=== PATIENT | female | born 1990 | race Caucasian/White ===

== ENCOUNTER 2017-09-04 19:29 | Observation (INO) ==
--- NOTE | 2017-09-04 19:40 | OB/GYN Progress Note ---
Date of Encounter: 09/04/17 Time of Encounter: 19:38 - Assessment and Plan (1) 35 weeks gestation of Current Visit: Yes Status: Acute (2) Decreased movement Current Visit: Yes Status: Acute We will perform NST. If within normal limits we will discharge the patient home with close follow-up with OB. Qualifiers: Fetus number: single or unspecified fetus Trimester: third trimester Qualified Code(s): O36.8130 - Decreased movements, third trimester, not applicable or unspecified Subjective - Subjective Interval history: 26-year-old female at 35 weeks 0 days presenting to labor and delivery with concern for decreased movement. Patient states she has had decreased movement for the past 2-4 weeks. She has spoken with her physician as an outpatient and was told that this was due to increased fetus size. Patient states she did kick counts E which were normal but has not felt baby move since 4 PM. Denies any fluid leakage, vaginal bleeding or contractions. Denies any other symptoms. Patient was seen in the emergency department yesterday and heart tones were 150. Antepartum ROS: no loss of fluid, no vaginal bleeding, no movement normal , no contractions Objective - Exam FHR: auscultation normal Abdomen: Present: normal appearance, soft, gravid Uterus: Present: normal, firm Comments: I examined this patient and my medical decision-making was reviewed with the Resident Physician. I agree with the documented findings, disposition and treatment plan as described except to the extent set forth below. [facility] [place]
[2017-09-04 19:55] LABS: Amphetamine Screen,Urine Negative ng/mL (Cutoff=1000); Barbiturate Screen,Urine Negative ng/mL (Cutoff=200); Benzodiazepines Screen,Urine Negative ng/mL (Cutoff=200); Cannabinoid Screen,Urine Negative ng/mL (Cutoff = 50); Cocaine Screen,Urine Negative ng/mL (Cutoff= 300); Opiate Screen,Urine Negative ng/mL (Cutoff=300); Phencyclidine Screen,Urine Negative ng/mL (Cutoff=25)
--- NOTE | 2017-09-04 21:13 | Discharge Summary ---
Date of Encounter: 09/04/17 Time of Encounter: 21:12 - Discharge Diagnosis (1) 35 weeks gestation of Priority: Primary Status: Acute Comments: admitted for observation (2) Decreased movement Priority: Secondary Status: Acute Comments: reactive nst patient reports +FM Qualifiers: Fetus number: single or unspecified fetus Trimester: third trimester Qualified Code(s): O36.8130 - Decreased movements, third trimester, not applicable or unspecified (3) NST (non-stress test) reactive on surveillance Priority: Secondary Status: Acute Comments: baseline 135 bpm moderate variability +15x15 accels no decels noted. Cat 1 tracing. - Discharge Medications Home Medications: Acetaminophen/Butalbital/Caffe [Fioricet] 1 each PO Q6HR PRN 09/03/17 [History] Lon907/FA/Omega3/Dha/Fish Oil [ Gummies] 1 each PO DAILY 09/03/17 [ History] Ranitidine HCl [Acid Ginner] 150 mg PO DAILY 09/03/17 [History] Allergies/Adverse Reactions: 3 Allergy/AdvReac Type Severity Reaction Status Date / Time No Known Allergies Allergy Verified 09/03/17 23:22 Data Procedures and tests throughout hospitalization: Laboratory Tests 09/04/17 19:35 Urine Opiates Screen Negative Ur Barbiturates Screen Negative Ur Phencyclidine Scrn Negative Ur Amphetamines Screen Negative U Benzodiazepines Scrn Negative Urine Cocaine Screen Negative U Marijuana (THC) Screen Negative Labs on day of discharge: Labs from last 24 hours 09/04/17 19:35 Urine Opiates Screen Negative Ur Barbiturates Screen Negative Ur Phencyclidine Scrn Negative Ur Amphetamines Screen Negative U Benzodiazepines Scrn Negative Urine Cocaine Screen Negative U Marijuana (THC) Screen Negative Date of admission: 09/04/17 19:29 Discharging clinician: Elvie Espinoza Anticipated date of discharge: 09/04/17 - Patient Status Disposition: Home, Self-Care Condition: Good - Discharge Instructions Follow Up With: Abdifatah Wood DO [Partnered Physician] - - Diet and Activity Activity: increase activity as tolerated Diet: regular diet Hospital Course [employer] Time Attestation: Total time spent providing and/or coordinating discharge services: Exam - Constitutional General appearance IM: A&O X 3, pleasant, answers questions appropriately - Other Additional findings: FHR 135 bpm moderate variability +15x15 accels no decels noted. Cat. 1 tracing. - VTE Reasons for not Prescribing Prophylaxis: Treatment not Indicated - Low risk for VTE
== END 2017-09-04 21:12 | disposition home or self-care (01) ==
LOC: 1NENULAB
PROVIDERS: ADMIT Obstetrics & Gynecology; ATTEND Obstetrics & Gynecology

== ENCOUNTER 2017-09-06 11:50 | Observation (INO) ==
[2017-09-06 13:08] LABS: Basophils % 0.2 %; Eosinophils % 0.3 %; Hematocrit 33.4 % (35.3-44.9); Hemoglobin 11.3 g/dL (11.5-15.4); Immature Granulocytes % 0.9 % (0-4); Lymphocytes # 2.7 K/mcL (0.6-4.6); Lymphocytes % 22.5 %; Mean Corpuscular HGB Conc 33.8 g/dL (31.6-35.5); Mean Corpuscular Hemoglobin 29.8 pg (28.0-33.3); Mean Corpuscular Volume 88.1 fL (83.0-100.0); Mean Platelet Volume 10.3 fL (9.4-12.4); Monocytes # 0.9 K/mcL (0.0-1.3); Monocytes % 7.7 %; Neutrophils # 8.3 K/mcL (1.6-8.9); Platelet Count 291 K/mcL (140-400); Red Blood Count 3.79 M/mcL (3.82-4.97); Red Cell Distribution Width 12.7 % (11.5-14.5); Segmented Neutrophils % 68.4 %
--- NOTE | 2017-09-06 14:10 | OB/GYN Progress Note ---
Date of Encounter: 09/06/17 Time of Encounter: 14:06 - Assessment and Plan (1) Fall from slipping on ice Current Visit: Yes Status: Acute Patient denies contractions, leaking fluid. A reactive fetus noted. tracing with baseline of 130s, accelerations noted. heart rate tracing difficult to trace at times due to arrhythmia. Labs within normal limits. Will discharge home with instructions of when to return to triage for evaluation. Discussed plan of care and arrhythmia with Dr. Ang Qualifiers: Encounter type: initial encounter Qualified Code(s): W00.9XXA - Unspecified fall due to ice and snow, initial encounter (2) 35 weeks gestation of Current Visit: No Status: Acute Subjective - Subjective Interval history: 35+5 weeks gestation presents to triage today following a fall on ice outside. Patient states she was walking outside and she slipped and fell on the ice hitting her bottom area patient states well was a hard during fall, she did not hit her abdomen and anyway. Reports good movement, denies contractions, vaginal bleeding or leaking of fluid Antepartum ROS: movement normal, no loss of fluid, no vaginal bleeding, no contractions Objective - Vital Signs Vital Signs: Intake and Output 09/05/17 09/06/17 09/06/17 23:59 07:59 15:59 Other: Weight 139 kg Patient Weight 09/06/17 23:59 Weight 139 kg - Exam FHR comments: arrhythmia noted during monitoring, making it difficult to trace fetus Auscultation: bilateral: normal Abdomen: Present: normal appearance, soft, gravid - Labs Labs: Abnormal lab results WBC 12.2 K/mcL (4.3-11.1) H 09/06/17 12:53 RBC 3.79 M/mcL (3.82-4.97) L 09/06/17 12:53 Hgb 11.3 g/dL (11.5-15.4) L 09/06/17 12:53 Hct 33.4 % (35.3-44.9) L 09/06/17 12:53
[2017-09-06 14:24] LABS: Activated Partial Thrombo Time 26.2 Seconds (26.0-36.0)
== END 2017-09-06 15:10 | disposition home or self-care (01) ==
LOC: 1NENULAB
PROVIDERS: ADMIT Obstetrics & Gynecology; ATTEND Obstetrics & Gynecology

== ENCOUNTER 2017-09-08 01:08 | Observation (INO) ==
[2017-09-08 01:41] LABS: Amphetamine Screen,Urine Negative ng/mL (Cutoff=1000); Barbiturate Screen,Urine Negative ng/mL (Cutoff=200); Benzodiazepines Screen,Urine Negative ng/mL (Cutoff=200); Cannabinoid Screen,Urine Negative ng/mL (Cutoff = 50); Cocaine Screen,Urine Negative ng/mL (Cutoff= 300); Opiate Screen,Urine Negative ng/mL (Cutoff=300); Phencyclidine Screen,Urine Negative ng/mL (Cutoff=25)
--- NOTE | 2017-09-08 02:11 | OB/GYN Progress Note ---
Date of Encounter: 09/08/17 Time of Encounter: 02:06 - Assessment and Plan (1) Decreased movement Current Visit: Yes Status: Acute Non-stress test - reactive Positive response to acoustic stimulation Qualifiers: Fetus number: single or unspecified fetus Trimester: third trimester Qualified Code(s): O36.8130 - Decreased movements, third trimester, not applicable or unspecified (2) 35 weeks gestation of Current Visit: No Status: Acute Observation for decreased movement Non-stress test reactive. (3) NST (non-stress test) reactive on surveillance Current Visit: No Status: Acute 135 bpm, moderate variability, + 15x15 accels after acoustic stimulation, no decels. Subjective - Subjective Principal diagnosis: Decreased movement Interval history: 26-year-old [id number] who presents today with complaint of decreased movement this evening. Denies fluid leakage and bleeding. Antepartum ROS: movement normal (decreased), no loss of fluid, no vaginal bleeding, no contractions Objective - Exam FHR: category 1 FHR comments: 135 bpm, moderate variability, +15x15 accels, no decels. Rare contractions noted on monitor Auscultation: bilateral: normal Abdomen: Present: normal appearance, soft, gravid Uterus: Present: normal Cervical dilation: Deferred
== END 2017-09-08 02:26 | disposition home or self-care (01) ==
LOC: 1NENULAB
PROVIDERS: ADMIT Registered Nurse; ATTEND Registered Nurse

== ENCOUNTER 2017-09-13 11:20 | Observation (INO) ==
[2017-09-13] MEDS ORDERED: Ringers Solution, Lactated 1,000 ML IVC ONE (12:11)
[2017-09-13] MEDS ORDERED: Ringers Solution, Lactated 1,000 ML ONE (12:12)
--- NOTE | 2017-09-13 12:19 | OB/GYN Progress Note ---
Date of Encounter: 09/13/17 Time of Encounter: 12:11 - Assessment and Plan (1) Dyspnea on exertion Current Visit: Yes Status: Acute NST pending Flu A/B rapid pending IV fluid bolus PIH labs Serial blood pressures (2) 36 weeks gestation of Current Visit: Yes Status: Acute Subjective - Subjective Principal diagnosis: Decreased movement & Dyspnea upon exertion Interval history: Ms Sumaya morales at 36 weeks and 2 days presents to labor and delivery with c/ o decreased movement, dyspnea with exertion, and diaphoresis. She denies any recent exposure to influenza. She states she began to have decreased movement today, but has had dyspnea with exertion for the past several days. She denies headache, vision changes, epigastric pain, vaginal bleeding, contractions, and vaginal discharge. Antepartum ROS: no loss of fluid, no vaginal bleeding, no movement normal , no contractions Objective - Exam FHR: auscultation normal, category 2 (FHTs 140 moderate variability. No accels. ) Auscultation: bilateral: normal Abdomen: Present: normal appearance, soft, gravid Uterus: Present: normal. Absent: firm, tenderness
[2017-09-13 12:33] LABS: Basophils % 0.2 %; Eosinophils % 0.2 %; Hematocrit 33.7 % (35.3-44.9); Hemoglobin 11.6 g/dL (11.5-15.4); Lymphocytes # 2.8 K/mcL (0.6-4.6); Mean Corpuscular HGB Conc 34.4 g/dL (31.6-35.5); Mean Corpuscular Hemoglobin 29.7 pg (28.0-33.3); Mean Corpuscular Volume 86.4 fL (83.0-100.0); Mean Platelet Volume 10.4 fL (9.4-12.4); Monocytes % 7.7 %; Neutrophils # 8.6 K/mcL (1.6-8.9); Platelet Count 302 K/mcL (140-400); Red Cell Distribution Width 12.6 % (11.5-14.5); Segmented Neutrophils % 68.9 %
[2017-09-13 12:39] LABS: Amphetamine Screen,Urine Negative ng/mL (Cutoff=1000); Barbiturate Screen,Urine Negative ng/mL (Cutoff=200); Benzodiazepines Screen,Urine Negative ng/mL (Cutoff=200); Cannabinoid Screen,Urine Negative ng/mL (Cutoff = 50); Cocaine Screen,Urine Negative ng/mL (Cutoff= 300); Opiate Screen,Urine Negative ng/mL (Cutoff=300); Phencyclidine Screen,Urine Negative ng/mL (Cutoff=25)
[2017-09-13 12:55] LABS: Creatinine,Urine 103 mg/dL; Protein/Creatinine Ratio,Urine 0.18 mg/mg (0.00-0.20)
[2017-09-13 13:04] VITALS: BP 133/72
[2017-09-13 13:13] LABS: Alanine Aminotransferase 24 Units/L (7-52); Aspartate Amino Transferase 18 Units/L (13-39); BUN/Creatinine Ratio 15 (6-26); Blood Urea Nitrogen 8 mg/dL (6-20); Lactate Dehydrogenase 147 Units/L (140-271); Uric Acid 4.2 mg/dL (2.3-7.6); eGFR For African Americans > 60 (> 60); eGFR For Non-African Americans > 60 (> 60)
== END 2017-09-13 13:45 | disposition short-term general hospital (02) ==
LOC: 1NENULAB
PROVIDERS: ADMIT Obstetrics & Gynecology; ATTEND Obstetrics & Gynecology

== ENCOUNTER 2017-09-21 23:58 | Observation (INO) ==
[2017-09-22] MEDS ORDERED: Acetaminophen 325 MG TABLET PO ONE (00:28)
--- NOTE | 2017-09-22 00:30 | OB/GYN Progress Note ---
Date of Encounter: 09/22/17 Time of Encounter: 00:28 - Assessment and Plan (1) 37 weeks gestation of Current Visit: Yes Status: Acute (2) Back pain affecting in third trimester Current Visit: Yes Status: Acute We will monitor for uterine contractions. Send UA Tylenol for back pain which improved pain somewhat. No cervical change on serial exams Discharged home with labor and when to return to triage precautions. (3) Previous delivery affecting Current Visit: No Status: Acute Subjective - Subjective Interval history: 37+4 weeks gestation presents to triage for evaluation of lower back pain. Patient states she has had constant lower back pain throughout this , but it increased during the evening today. Patient states pain is constant. Denies dysuria or urgency. Unable to pinpoint any obvious strain as cause of pain and discomfort. Patient reports good movement, denies vaginal bleeding or leaking of fluid Antepartum ROS: movement normal, no loss of fluid, no vaginal bleeding, no contractions Objective - Exam FHR: auscultation normal FHR comments: Baseline 135 Abdomen: Present: normal appearance, soft, gravid Uterus: Present: firm Cervical dilation: fingertip/long/-3 Comments: no cva tenderness
[2017-09-22 00:36] LABS: Amphetamine Screen,Urine Negative ng/mL (Cutoff=1000); Barbiturate Screen,Urine Negative ng/mL (Cutoff=200); Benzodiazepines Screen,Urine Negative ng/mL (Cutoff=200); Cannabinoid Screen,Urine Negative ng/mL (Cutoff = 50); Cocaine Screen,Urine Negative ng/mL (Cutoff= 300); Opiate Screen,Urine Negative ng/mL (Cutoff=300); Phencyclidine Screen,Urine Negative ng/mL (Cutoff=25)
[2017-09-22 01:23] LABS: Bilirubin,Urine Negative (Negative); Blood,Urine Negative (Negative); Clarity,Urine Cloudy (Clear); Color,Urine Dark Yellow (Yellow); Glucose,Urine (UA) Normal (Normal); Ketones,Urine Negative (Negative); Leukocyte Esterase,Urine Negative (Negative); Nitrite,Urine Negative (Negative); Protein,Urine Trace mg/dL (Neg-Trace); Specific Gravity,Urine 1.027 (1.010-1.025); Urobilinogen,Urine Normal (Normal)
[2017-09-22 01:24] LABS: Bacteria,Urine None Seen per hpf (None-Few); Hyaline Casts,Urine None Seen per lpf (None-Few); Squamous Epithelial Cell,Urine Many per lpf (None-Few)
== END 2017-09-22 02:00 | disposition home or self-care (01) ==
LOC: 1NENULAB
PROVIDERS: ADMIT Obstetrics & Gynecology; ATTEND Obstetrics & Gynecology

== ENCOUNTER → 2017-10-01 17:21 | Observation (INO) ==
[2017-10-01 16:38] LABS: Amphetamine Screen,Urine Negative ng/mL (Cutoff=1000); Barbiturate Screen,Urine Negative ng/mL (Cutoff=200); Benzodiazepines Screen,Urine Negative ng/mL (Cutoff=200); Cannabinoid Screen,Urine Negative ng/mL (Cutoff = 50); Cocaine Screen,Urine Negative ng/mL (Cutoff= 300); Opiate Screen,Urine Negative ng/mL (Cutoff=300); Phencyclidine Screen,Urine Negative ng/mL (Cutoff=25)
--- NOTE | 2017-10-01 17:17 | OB/GYN Progress Note ---
Date of Encounter: 10/01/17 Time of Encounter: 17:15 - Assessment and Plan (1) 38 weeks gestation of Current Visit: No Status: Acute Patient feeling movement in triage. tracing reactive. Discharge home with plan to return instructions (2) Decreased movement Current Visit: No Status: Acute Patient feeling movement in triage. tracing reactive. Discharge home with plan to return instructions Qualifiers: Fetus number: single or unspecified fetus Trimester: third trimester Qualified Code(s): O36.8130 - Decreased movements, third trimester, not applicable or unspecified (3) NST (non-stress test) reactive on surveillance Current Visit: No Status: Acute Baseline 135 Subjective - Subjective Interval history: Patient presents to triage with reports of decreased movement during the day. Patient states the baby has been moving some but a lot last less movement fountain hour before arriving in triage, denies vaginal bleeding or leaking of fluid. Scheduled for section tomorrow morning Antepartum ROS: no loss of fluid, no vaginal bleeding, no movement normal , no contractions Objective - Vital Signs Vital Signs: Intake and Output 10/01/17 10/01/17 10/01/17 07:59 15:59 23:59 Other: Weight 145.6 kg Patient Weight 10/01/17 23:59 Weight 145.6 kg - Exam FHR: auscultation normal FHR comments: baseline 135 Abdomen: Present: normal appearance, soft
== END | disposition home or self-care (01) ==
LOC: 1NENULAB
PROVIDERS: ADMIT Obstetrics & Gynecology; ATTEND Obstetrics & Gynecology

== ENCOUNTER 2017-10-02 07:44 | Inpatient (IN) ==
[2017-10-02] MEDS ORDERED: Famotidine 20 MG/2 ML VIAL IVP ONE (07:48)
[2017-10-02] MEDS ORDERED: Oxytocin 20 units/ LR 1000 mL 20 UNIT/1,000 ML BAG IVC ONE (07:48)
[2017-10-02] MEDS ORDERED: CeFAZolin Syr 3,000MG/30 ML 3,000 MG/30 ML SYRINGE IVPB ONE (07:48)
[2017-10-02] MEDS ORDERED: Metoclopramide 10 MG/2 ML VIAL IVP ONE (07:48)
[2017-10-02] MEDS ORDERED: Ringers Solution, Lactated 1,000 ML IVC SCH ×2 (08:00→13:15)
--- NOTE | 2017-10-02 08:25 | OB/GYN History & Physical ---
Date of Encounter: 10/02/17 Time of Encounter: 08:20 Assessment and Plan (1) and not yet delivered in third trimester Current visit: Yes Status: Acute (2) Previous section complicating Current visit: Yes Status: Acute Patient will be scheduled for repeat low transverse uterine section with bilateral partial salpingectomy (3) Family planning advice Current visit: Yes Status: Acute (4) 39 weeks gestation of Current visit: No Status: Acute History of Present Illness HPI: Ms. Shell is a 26 year old female 3 para 2 at 39-0/7 weeks who presented for repeat section with tubal ligation. Patient has a history of 2 previous sections due to failure to progress and a repeat and does not want to have any more babies. She has signed tubal papers. The risks and benefit of tubal ligation was explained to patient with a failure rate of 5-8 per thousand with increased risk of ectopic if was to occur. Patient is GBS positive, rubella positive, Rh+. Past Med Surg Social Fam HX - Past Medical History Source: patient, old records reviewed Medical history: GERD, glaucoma, migraine Psychiatric history: no psych history - Past Surgical History Surgical History: (Times 2) - Social History Smoking Status: Current every day smoker Packs per day: 0.5 pack Smokeless Tobacco Status: No Alcohol use: none Drug use: none Occupational status: unemployed Current living situation: Home - Independent Activity Level: Independent ambulation Recent Out of Country Travel Within the Last 8 Weeks: No Exposure or Possible Exposure to Illness During Travel: No - Family History Sister Adopted: No Living Status: Still Living Hx Family Cardiac Disorders: No Hx Family Respiratory Disorders: Yes (asthma) Hx Family Cancer: No Hx Family GI Disorders: No Hx Family Genitourinary Disorders: No Hx Family Endocrine Disorder: No Hx Family Musculoskeletal Disorders: No Hx Family Neuromuscular Disorders: No Hx Family Neurologic Disorders: No Hx Family HEENT Disorders: No Hx Family Autoimmune Disorders: No Hx Family Reproductive Disorders: No Hx Family Psychosocial Disorders: No Hx Family Medical Disorders: No Mother Living Status: Still Living Hx Family Cardiac Disorders: No (Mother denies any history) Hx Family Respiratory Disorders: No Hx Family Cancer: No Hx Family GI Disorders: No Hx Family Endocrine Disorder: No Hx Family Neuromuscular Disorders: No Hx Family Neurologic Disorders: No Hx Family HEENT Disorders: No Hx Family Autoimmune Disorders: No Obstetrical History - Pregnancies : 3 Para: 2 Term: 2 : 0 Ab's: 0 Livin Medications and Allergies Jwh326/FA/Omega3/Dha/Fish Oil [ Gummies] 1 each PO DAILY 09/03/17 [ History] Ranitidine HCl [Acid Fur Cutting Machine Operator] 150 mg PO DAILY 09/03/17 [History] 3 Allergy/AdvReac Type Severity Reaction Status Date / Time No Known Allergies Allergy Verified 09/25/17 21:20 Review of System OB All systems PM: reviewed and no additional remarkable complaints except as stated Exam - Constitutional Constitutional: well developed, well nourished, no acute distress, morbidly obese - HEENT HEENT: EOMI, PERRL - Neck Neck exam: full ROM - Lungs Respiratory exam: CTAB - Cardiovascular Cardiovascular exam: RRR - Abdomen Abdomen: Present: bowel sounds normal, gravid - Cervix Dilation: 0 Effacement: 50 Station: -3 - Uterus Uterus exam: Present: normal size, enlarged Results All other labs normal. - VTE Reasons for not Prescribing Prophylaxis: Treatment not Indicated - Low risk for VTE
[2017-10-02 08:55] LABS: Basophils % 0.2 %; Eosinophils % 0.4 %; Hematocrit 32.9 % (35.3-44.9); Hemoglobin 11.3 g/dL (11.5-15.4); Immature Granulocytes % 0.7 % (0-4); Lymphocytes # 2.9 K/mcL (0.6-4.6); Lymphocytes % 28.1 %; Mean Corpuscular HGB Conc 34.3 g/dL (31.6-35.5); Mean Corpuscular Hemoglobin 29.2 pg (28.0-33.3); Mean Platelet Volume 10.3 fL (9.4-12.4); Monocytes # 0.8 K/mcL (0.0-1.3); Monocytes % 7.9 %; Neutrophils # 6.5 K/mcL (1.6-8.9); Platelet Count 286 K/mcL (140-400); Red Blood Count 3.87 M/mcL (3.82-4.97); Segmented Neutrophils % 62.7 %
[2017-10-02 09:02] LABS: Amphetamine Screen,Urine Negative ng/mL (Cutoff=1000); Barbiturate Screen,Urine Negative ng/mL (Cutoff=200); Benzodiazepines Screen,Urine Negative ng/mL (Cutoff=200); Cannabinoid Screen,Urine Negative ng/mL (Cutoff = 50); Cocaine Screen,Urine Negative ng/mL (Cutoff= 300); Opiate Screen,Urine Negative ng/mL (Cutoff=300); Phencyclidine Screen,Urine Negative ng/mL (Cutoff=25)
[2017-10-02] MEDS ORDERED: *HR* FentaNYL (PF) 100 MCG/2 ML VIAL ONE (09:03)
[2017-10-02] MEDS ORDERED: Morphine Sulfate/PF 5mg/10mL Vial ONE (09:03)
[2017-10-02] MEDS ORDERED: *HR* Phenylephrine 10 MG/ML VIAL ONE (09:04)
[2017-10-02] MEDS ORDERED: EPHEDrine 50 MG/ML VIAL ONE (09:04)
[2017-10-02] MEDS ORDERED: Ketorolac 30 MG/ML VIAL ONE (09:05)
[2017-10-02] MEDS ORDERED: Ondansetron 4 MG/2 ML VIAL ONE (09:05)
[2017-10-02] MEDS ORDERED: Ringers Solution, Lactated 1,000 ML ONE ×2 (09:05→09:30)
[2017-10-02] MEDS ORDERED: *HR* Oxytocin 10 UNIT/ML VIAL IM ONE (09:05)
[2017-10-02] MEDS ORDERED: Dexamethasone 4 MG/ML VIAL ONE (09:05)
--- NOTE | 2017-10-02 09:07 | Anesthesia Evaluation PreOp ---
Date of Encounter: 10/02/17 Time of Encounter: 09:02 - Past History Planned Operation: Repeat csection Cardiac History: Denies any Significant Hx Pulmonary History: Smoker BOBBIN STRIPPER History: Denies Any Significant HX Other Medical History: Denies Any Significant HX Anesthesia History: No Prior Anesthetic Complications, Past Anesthesia (csection ) Alcohol Use: none Drug use: none Medications and Allergies Ugp858/FA/Omega3/Dha/Fish Oil [ Gummies] 1 each PO DAILY 09/03/17 [ History] Ranitidine HCl [Acid Concession Cashier] 150 mg PO DAILY 09/03/17 [History] 3 Allergy/AdvReac Type Severity Reaction Status Date / Time No Known Allergies Allergy Verified 09/25/17 21:20 - Meds/Allergy Pre-op Review Medications Reviewed: Yes Allergies Reviewed: Yes Beta Blockers on Current Med List: No Anesthesia Results - Labs 10/02/17 08:00 Anesthesia Exam O2 Sat Height 1.7 m Height 1.7 m Weight 144.3 kg Weight 144.3 kg NPO (# of Hours): >8 Pain Scale: 0 Pain Scale Used: Numeric (1 - 10) - HEENT Pupil (Motor): Pupils equal, EOMI Mallampati: I Teeth: Normal Oral Opening: Greater than 3 - BOBBIN STRIPPER LOC: Oriented BOBBIN STRIPPER Motor: Normal RUE, Normal LUE, Normal RLE, Normal LLE, Normal Face BOBBIN STRIPPER Sensory: Normal: RUE, LUE, RLE, LLE, Face - Cardiac Rhythm: Regular - Pulmonary Breath Sounds: bilateral Clear Respiratory Effort: Symmetrical Anesthesia Assess/Plan ASA Score: 2 Modified Shai Scale for Level of Consciousness: Cooperative, oriented, and tranquil Anesthetic Plan: Regional (SPINAL r/b/a discussed, questions answered, consent obtained) Monitoring Plan: Standard Monitors Recovery Plan: PACU
[2017-10-02] MEDS ORDERED: Ibuprofen 400 MG TABLET PO PRN (10:09)
[2017-10-02] MEDS ORDERED: *HR* OxyCODONE/APAP 5/325 TABLET PO PRN (10:09)
[2017-10-02] MEDS ORDERED: Ondansetron 4 MG/2 ML VIAL IVP PRN ×2 (10:09→13:15)
--- NOTE | 2017-10-02 11:06 | OB/GYN Procedure Note ---
Section - Date of procedure: 10/02/17 Preop diagnosis: other (Intrauterine at 39 and 0 since weeks, previous section 2, desires sterilization) Post-op diagnosis: same (With pelvic adhesions) Procedure: repeat low transverse, other (Lysis of adhesions) Surgeon: Abdifatah Wood Estimated blood loss (cc): 600 Was there an ice cream freezer assistant present: No Anesthesiologist: Marcie Welch Tin Roofer: Katelyn Milton Anesthesia Type: Spinal section complications: none Disposition: L&D Recovery Room Specimens: Placenta - (s) Infant A Delivery Date: 10/02/17 Infant Delivery Time: 10:00 Presentation: vertex Position: JUANITA Route of delivery: other (cesarian section) Gender: Male Viability: Viable Pounds: 9 Ounces: 0 Gram Weight: 4.075 kg at 1 minute: 8 at 5 minutes: 9 Shoulder Dystocia: not encountered Specimens collected: cord blood Placenta: spontaneous Cord: 3 umbilical vessels - Narrative Narrative: Patient is a 26-year-old 3 para 2 at 39-0/7 weeks who presented for repeat section with tubal ligation. Patient had a history of 2 previous sections and was counseled she would need a repeat patient also wanted a tubal ligation if the muscle of the uterus was very thin. We did discuss this with the patient in the office the risks and benefits of the tubal had been previously discussed with failure rate of 5 days per thousand with increased risk of ectopic if was to occur. Procedure: Patient was taken to the operating room where spinal anesthesia was found be adequate. She was placed in the dorsal supine position with a leftward tilt and prepped and draped in usual fashion. Timeout was then obtained. A Pfannenstiel incision was made with a scalpel and carried down through the underlying tissue to the fascia was identified. The fascia was nicked in the midline extended laterally with the Wetzel scissors. The superior and inferior edges of the fascia were then grasped and then dissected off the rectus muscles. Rectus muscles were in the midline she was noticed time to have omental adhesions across the peritoneal surface. The peritoneum was opened anteriorly and posteriorly than the omental adhesions were then taken off with the monopolar cautery. Once this was freed the bladder blade was inserted we decided to stay away from the lower uterine segment and with just above it and incision was made with a scalpel and extended laterally with digital manipulation. Membranes were ruptured clear fluid noted. The infant's head was delivered followed by the body the cord was clamped and cut and infant was handed off to waiting pediatric team. The placenta was sent to spontaneously 3 vessel cord, uterus was exteriorized and cleaned of all clots and debris within the lower uterine segment was closed using a 0 Vicryl in a running locking stitch by to the closure. Good hemostasis was noted. We did discuss that that lower segment was relatively thick and whether or not she wanted to have a tubal and patient stated she did not want to have it at this time. No tubal ligation was performed. The uterus was returned to the abdomen the gutters were cleaned of all clots and debris and copiously irrigated. The parietal peritoneum was then closed using 2-0 Vicryl and a running stitch the fascia was then closed using a #1 stratafix in a running stitch and the skin was closed using 4-0 Vicryl in a subcuticular manner. A shaka dressing was applied and the patient was taken to the recovery room in stable condition. All needles lap and sponge counts were correct 3. Patient did receive preoperative antibiotics.
[2017-10-02] MEDS ORDERED: Simethicone 80 MG TAB.CHEW PO PRN (13:15)
[2017-10-02] MEDS ORDERED: Metoclopramide 10 MG/2 ML VIAL IVP PRN (13:15)
[2017-10-02] MEDS ORDERED: Sennosides 8.6 MG TABLET PO PRN (13:15)
[2017-10-02] MEDS ORDERED: Oxytocin 20 units/ LR 1000 mL 20 UNIT/1,000 ML BAG IVC SCH (13:15)
[2017-10-02] MEDS: *HR* OxyCODONE/APAP 5/325 TABLET PO PRN ×2 (17:00→22:41)
[2017-10-02] MEDS: Ibuprofen 600 MG TABLET PO PRN (20:43)
[2017-10-02] MEDS ORDERED: *HR* Nalbuphine 20 MG/ML AMPUL IVP ONE (23:52)
[2017-10-03] MEDS: Ibuprofen 600 MG TABLET PO PRN ×4 (02:46→22:37)
[2017-10-03] MEDS: *HR* OxyCODONE/APAP 5/325 TABLET PO PRN ×4 (02:46→20:22)
[2017-10-03] MEDS ORDERED: *HR* Nalbuphine 20 MG/ML AMPUL IVP ONE (04:47)
[2017-10-03 04:59] LABS: Basophils % 0.2 %; Eosinophils % 0.3 %; Hematocrit 31.6 % (35.3-44.9); Hemoglobin 10.4 g/dL (11.5-15.4); Immature Granulocytes % 0.7 % (0-4); Lymphocytes % 25.9 %; Mean Corpuscular HGB Conc 32.9 g/dL (31.6-35.5); Mean Corpuscular Hemoglobin 28.7 pg (28.0-33.3); Mean Corpuscular Volume 87.1 fL (83.0-100.0); Mean Platelet Volume 10.3 fL (9.4-12.4); Monocytes # 0.9 K/mcL (0.0-1.3); Monocytes % 7.8 %; Neutrophils # 7.7 K/mcL (1.6-8.9); Platelet Count 245 K/mcL (140-400); Red Blood Count 3.63 M/mcL (3.82-4.97); Red Cell Distribution Width 12.9 % (11.5-14.5); Segmented Neutrophils % 65.1 %
[2017-10-03] MEDS: Prenatal Vit/FA 1 EACH TABLET PO SCH (08:53)
[2017-10-03] MEDS ORDERED: [UNRECOGNIZED DRUG - OTHER] PO SCH (09:00)
[2017-10-03] MEDS ORDERED: OMEGA3 PO SCH (09:00)
[2017-10-03] MEDS ORDERED: DHA PO SCH (09:00)
[2017-10-03] MEDS ORDERED: FISH OIL E PO SCH (09:00)
--- NOTE | 2017-10-03 09:07 | OB/GYN Progress Note ---
Date of Encounter: 10/03/17 Time of Encounter: 09:05 - Assessment and Plan (1) Status post repeat low transverse section Current Visit: Yes Status: Acute Continue routine postop care discharge home tomorrow Subjective - Subjective Principal diagnosis: status post repeat c/s Interval history: Patient in bed, Patient has been up ambulating without difficulty. Patient reports + flatus. Patient reports: appetite normal, voiding normally, pain well controlled, ambulating normally [place]: doing well, bottle feeding Objective - Vital Signs Latest vital signs: Vital Signs Temp Pulse Pulse Resp BP Pulse Ox 10/03/17 08:42 16 10/03/17 03:06 98.2 F 79 18 111/65 99 10/02/17 23:10 97.9 F 80 16 118/72 99 10/02/17 20:00 97.6 F 82 14 109/71 95 10/02/17 16:44 16 10/02/17 15:15 98.1 F 86 16 106/53 10/02/17 14:30 97.5 F L 98 16 104/55 97 10/02/17 14:15 98 F 86 86 16 114/64 97 10/02/17 13:45 98.2 F 84 84 16 117/58 95 10/02/17 13:15 98.3 F 88 18 121/64 96 Intake and Output 10/02/17 10/03/17 10/03/17 23:59 07:59 15:59 Intake Total 200 / 200 Output Total 460 / 460 250 / 250 400 / 400 Balance -460 / -460 -50 / -50 -400 / -400 Intake: Oral 200 / 200 Output: Urine 400 / 400 Catheter 460 / 460 250 / 250 Urethral (Salguero) 35 / 35 Other: Weight 140.614 kg Patient Weight 10/03/17 23:59 Weight 140.614 kg - Exam Lungs: bilateral: normal Chest: Normal S1, Normal S2 Extremities: Present: normal Abdomen: Present: normal appearance, soft, gravid Incision: Present: normal, dry, other (ISHA dressing) Uterus: Present: normal, firm Fundal Height: 2 (U/2) - Labs Labs: Laboratory Results - last 24 hr 10/02/17 10/02/17 10/03/17 08:00 11:50 04:22 WBC 11.8 H RBC 3.63 L Hgb 10.4 L Hct 31.6 L MCV 87.1 MCH 28.7 MCHC 32.9 RDW 12.9 Plt Count 245 MPV 10.3 Immature Gran % 0.7 Seg Neutrophils % 65.1 Lymphocytes % 25.9 Monocytes % 7.8 Eosinophils % 0.3 Basophils % 0.2 Neutrophils # 7.7 Lymphocytes # 3.0 Monocytes # 0.9 Eosinophils # 0.0 Basophils # 0.0 Urine Opiates Screen Negative Ur Barbiturates Screen Negative Ur Phencyclidine Scrn Negative Ur Amphetamines Screen Negative U Benzodiazepines Scrn Negative Urine Cocaine Screen Negative U Marijuana (THC) Screen Negative Hep Bs Antigen Nonreactive
[2017-10-04] MEDS: *HR* OxyCODONE/APAP 5/325 TABLET PO PRN ×2 (05:22→11:21)
[2017-10-04] MEDS: Ibuprofen 600 MG TABLET PO PRN (08:25)
[2017-10-04] MEDS: Prenatal Vit/FA 1 EACH TABLET PO SCH (08:25)
[2017-10-04 08:34] VITALS: BP 112/73
--- NOTE | 2017-10-04 10:57 | Discharge Summary ---
Date of Encounter: 10/04/17 Time of Encounter: 10:54 - Discharge Diagnosis (1) Status post repeat low transverse section Priority: Primary Status: Acute Comments: Pain well-managed on by mouth pain medication, tolerating regular diet, voiding without difficulty, passing flatus, desires discharge home stable and appropriate for discharge - Discharge Medications Prescriptions: OxyCODONE/APAP 5/325 [Percocet 5/325 MG] 1 each PO Q4HR PRN 7 Days #20 tablet PRN Reason: Moderate pain 4-6 Ibuprofen [Motrin] 600 mg PO Q6HR PRN #60 tablet PRN Reason: Cramping Docusate [Colace] 100 mg PO BID #60 capsule Ferrous Sulfate 325 mg PO DAILY #60 tablet Home Medications: Ranitidine HCl [Acid Piano Stringer] 150 mg PO DAILY 09/03/17 [History] Docusate [Colace] 100 mg PO BID #60 capsule 10/04/17 [Rx] Ferrous Sulfate 325 mg PO DAILY #60 tablet 10/04/17 [Rx] Ibuprofen [Motrin] 600 mg PO Q6HR PRN #60 tablet 10/04/17 [Rx] OxyCODONE/APAP 5/325 [Percocet 5/325 MG] 1 each PO Q4HR PRN 7 Days #20 tablet [Rx] Vit/FA 1 each PO DAILY tablet 10/04/17 [Rx] Allergies/Adverse Reactions: 3 Allergy/AdvReac Type Severity Reaction Status Date / Time No Known Allergies Allergy Verified 09/25/17 21:20 Data Procedures and tests throughout hospitalization: Laboratory Tests 10/02/17 10/02/17 10/02/17 08:00 08:00 11:50 WBC 10.3 RBC 3.87 Hgb 11.3 L Hct 32.9 L MCV 85.0 MCH 29.2 MCHC 34.3 RDW 13.0 Plt Count 286 MPV 10.3 Immature Gran % 0.7 Seg Neutrophils % 62.7 Lymphocytes % 28.1 Monocytes % 7.9 Eosinophils % 0.4 Basophils % 0.2 Neutrophils # 6.5 Lymphocytes # 2.9 Monocytes # 0.8 Eosinophils # 0.0 Basophils # 0.0 Urine Opiates Screen Negative Ur Barbiturates Screen Negative Ur Phencyclidine Scrn Negative Ur Amphetamines Screen Negative U Benzodiazepines Scrn Negative Urine Cocaine Screen Negative U Marijuana (THC) Screen Negative Hep Bs Antigen Nonreactive 10/03/17 04:22 WBC 11.8 H RBC 3.63 L Hgb 10.4 L Hct 31.6 L MCV 87.1 MCH 28.7 MCHC 32.9 RDW 12.9 Plt Count 245 MPV 10.3 Immature Gran % 0.7 Seg Neutrophils % 65.1 Lymphocytes % 25.9 Monocytes % 7.8 Eosinophils % 0.3 Basophils % 0.2 Neutrophils # 7.7 Lymphocytes # 3.0 Monocytes # 0.9 Eosinophils # 0.0 Basophils # 0.0 Urine Opiates Screen Ur Barbiturates Screen Ur Phencyclidine Scrn Ur Amphetamines Screen U Benzodiazepines Scrn Urine Cocaine Screen U Marijuana (THC) Screen Hep Bs Antigen Date of admission: 10/02/17 07:44 Primary care physician: PCP NONE Discharging clinician: Tiarra Hurst Anticipated date of discharge: 10/04/17 - Patient Status Disposition: Home, Self-Care Condition: Good Functional capacity at discharge: independent ambulation Overall status at discharge: patient is back to baseline - Discharge Instructions Follow Up With: NONE,PCP [Primary Care Provider] - - Diet and Activity Activity: resume usual activities as tolerated Diet: regular diet Hospital Course Reason for admission: section Delivery: section Episiotomy: none Laceration: none Other procedures: none complications: none Discharge diagnosis: IUP at term delivered [place] baby: male Hospital course: Section - Date of procedure: 10/02/17 Preop diagnosis: other (Intrauterine at 39 and 0 since weeks, previous section 2, desires sterilization) Post-op diagnosis: same (With pelvic adhesions) Procedure: repeat low transverse, other (Lysis of adhesions) Surgeon: Abdifatah Wood Estimated blood loss (cc): 600 Was there an food and beverage assistant present: No Anesthesiologist: Marcie Welch Development Representative: Katelyn Milton Anesthesia Type: Spinal section complications: none Disposition: L&D Recovery Room Specimens: Placenta - Infant (s) Infant A Delivery Date: 10/02/17 Infant Delivery Time: 10:00 Presentation: vertex Position: JUANITA Route of delivery: other (cesarian section) Gender: Male Viability: Viable Pounds: 9 Ounces: 0 Gram Weight: 4.075 kg at 1 minute: 8 at 5 minutes: 9 Shoulder Dystocia: not encountered Specimens collected: cord blood Placenta: spontaneous Cord: 3 umbilical vessels Stable in PP and appropriate for discharge, OAARS reviewed. Time Attestation: Total time spent providing and/or coordinating discharge services: Time Spent: Less than 30 minutes - VTE Reasons for not Prescribing Prophylaxis: Treatment not Indicated - Low risk for VTE Documentation of Mechanical Device: Intermittent pneumatic compression device Exam - Constitutional Vitals: Temp Pulse Resp BP Pulse Ox 98.1 F 93 16 112/73 96 10/04/17 08:25 10/04/17 08:25 10/04/17 08:25 10/04/17 08:25 10/04/17 08:25 General appearance IM: A&O X 3 - Respiratory Respiratory exam: Present: CTAB - Cardiovascular Cardiovascular exam IM: Present: RRR - GI/Abdominal GI/Abdominal exam IM: normal bowel sounds, soft Incision: dressed (ISHA in place no drainage) - Uterine Tone: Firm Uterus Position: At Umbilicus - Extremities Exam Extremities exam IM: Present: normal capillary refill, normal inspection - Neurological Exam Neurological exam: normal gait, oriented X3 - Psychiatric Additional comments: Reports good mood.
== END 2017-10-04 13:20 | disposition home or self-care (01) | DRG 540 ==
LOC: 1NENULAB 07:44
PROVIDERS: ADMIT Obstetrics & Gynecology; ATTEND Obstetrics & Gynecology